=== PATIENT | female | born 1965 | race Caucasian/White ===

== ENCOUNTER 2020-02-21 06:24 | Inpatient (IN) ==
[2020-02-21] MEDS ORDERED: Heparin 1,000 UNITS/500 mL 500 ML ONE (06:46)
[2020-02-21] MEDS ORDERED: *HR* Propofol 200 MG/20 ML VIAL IVP ONE (06:50)
[2020-02-21] MEDS ORDERED: *HR* Midazolam HCl 2 MG/2 ML VIAL ONE (06:50)
[2020-02-21] MEDS ORDERED: *HR* Rocuronium Bromide 50 MG/5 ML VIAL ONE ×3 (06:52→10:19)
[2020-02-21] MEDS ORDERED: *HR* Succinylcholine 200 MG/10 ML VIAL IVP ONE (06:52)
[2020-02-21] MEDS ORDERED: Lidocaine HCL 4 ML Topical Solution (Laryng-O-Jet Kit Sterile Pak) TP ONE (06:52)
[2020-02-21] MEDS ORDERED: Lidocaine -MPF 2% 2 ML VIAL ONE ×2 (06:52→07:05)
[2020-02-21] MEDS ORDERED: EPHEDrine 50 MG/ML VIAL ONE (06:54)
[2020-02-21] MEDS ORDERED: *HR* Remifentanil 2 MG VIAL IVP ONE ×2 (06:55→10:15)
[2020-02-21] MEDS ORDERED: *HR* Phenylephrine 10 MG/ML VIAL ONE (07:04)
[2020-02-21] MEDS ORDERED: Heparin 1,000 UNITS/500 mL 1,000 ML ONE (07:08)
[2020-02-21] MEDS ORDERED: Vancomycin 1,500 MG/265 ML IV.SOLN IVPB ONE ×3 (07:17→20:00)
[2020-02-21] MEDS ORDERED: CeFAZolin Syr 2,000MG/20 ML 2,000 MG/20 ML SYRINGE IVPB ONE (07:17)
[2020-02-21] MEDS ORDERED: Ringers Solution, Lactated 1,000 ML IVC SCH ×2 (07:30→12:15)
[2020-02-21] MEDS ORDERED: Vancomycin 1,000 MG, Sodium Chloride IRRigation 1,000 ML IR ONE (07:45)
[2020-02-21] MEDS ORDERED: Ondansetron 4 MG/2 ML VIAL ONE (08:45)
[2020-02-21] MEDS ORDERED: Dexamethasone 4 MG/ML VIAL ONE (08:45)
[2020-02-21 10:36] LABS: ABG Base Excess -2 mEq/L (-2 to 3); ABG Chloride 108 mEq/L (98-107); ABG Glucose 95 mg/dL (60-95); ABG HCO3 23 mEq/L (21-27); ABG Ionized Calcium 1.15 mmol/L (1.15-1.35); ABG Oxygen Saturation 100 % (95-98); ABG PCO2 37 mmHg (35-45); ABG PO2 251 mmHg (85-104); ABG TCO2 24 mEq/L (20-26)
[2020-02-21] MEDS ORDERED: Vancomycin 1,000 MG VIAL ONE (10:59)
[2020-02-21] MEDS ORDERED: *HR* FentaNYL (PF) 100 MCG/2 ML VIAL ONE (11:50)
[2020-02-21] MEDS ORDERED: Acetaminophen 325 MG TABLET PO PRN ×2 (11:57→13:15)
[2020-02-21] MEDS ORDERED: *HR* HYDROcodone/Acet 5/325 mg TABLET PO PRN (11:57)
[2020-02-21] MEDS ORDERED: *HR* OxyCODONE Immed Rel 5 MG TABLET PO PRN ×2 (11:57→13:15)
[2020-02-21] MEDS ORDERED: *HR* Labetalol 20 MG/4 ML SYRINGE IVP PRN ×3 (11:57→12:09)
[2020-02-21] MEDS ORDERED: Ondansetron 4 MG/2 ML VIAL IVP PRN ×3 (11:57→13:15)
[2020-02-21] MEDS ORDERED: Naloxone 0.4 MG/ML INJ IVP PRN ×2 (11:57→13:15)
[2020-02-21] MEDS ORDERED: 0.9 % Sodium Chloride 1,000 ML IVC SCH (12:00)
[2020-02-21] MEDS ORDERED: *HR* Metoprolol 5 MG/5 ML VIAL IVP SCH (12:00)
[2020-02-21] MEDS ORDERED: *HR* HYDROmorphone PF 0.5 MG/0.5 ML SYRINGE IVP PRN (12:07)
[2020-02-21] MEDS ORDERED: Acetaminophen IV 1,000 MG/100 ML INFUS..BTL IVPB PRN (12:08)
[2020-02-21] MEDS: *HR* HYDROmorphone PF 0.5 MG/0.5 ML SYRINGE IVP PRN ×2 (12:30→12:35)
[2020-02-21] MEDS: 0.9 % Sodium Chloride 1,000 ML IVC SCH (14:59)
[2020-02-21 15:20] LABS: ABG Base Excess -5 mEq/L (-2 to 3); ABG Chloride 111 mEq/L (98-107); ABG Glucose 105 mg/dL (60-95); ABG HCO3 20 mEq/L (21-27); ABG Ionized Calcium 1.09 mmol/L (1.15-1.35); ABG Oxygen Saturation 100 % (95-98); ABG PCO2 38 mmHg (35-45); ABG PH 7.34 pH Units (7.32-7.45); ABG PO2 227 mmHg (85-104); ABG TCO2 22 mEq/L (20-26)
[2020-02-21] MEDS ORDERED: CeFAZolin 2 GM/120 ML BAG IVPB SCH (16:00)
[2020-02-21] MEDS: CeFAZolin 2 GM/120 ML BAG IVPB SCH ×2 (17:40→23:55)
[2020-02-21] MEDS: *HR* Metoprolol 5 MG/5 ML VIAL IVP SCH ×2 (17:40→23:55)
[2020-02-21] MEDS: hydrOXYzine pamoate 25 MG CAPSULE PO SCH (21:31)
[2020-02-21] MEDS: traZODone 50 MG TABLET PO SCH (21:31)
[2020-02-22 01:59] LABS: Basophils % 0.2 %; Hematocrit 45.8 % (35.3-44.9); Hemoglobin 14.7 g/dL (11.5-15.4); Immature Granulocytes % 0.5 % (0-4); Lymphocytes # 2.4 K/mcL (0.6-4.6); Lymphocytes % 13.8 %; Mean Corpuscular HGB Conc 32.1 g/dL (31.6-35.5); Mean Corpuscular Hemoglobin 30.7 pg (28.0-33.3); Mean Corpuscular Volume 95.6 fL (83.0-100.0); Mean Platelet Volume 11.6 fL (9.4-12.4); Monocytes # 1.2 K/mcL (0.0-1.3); Monocytes % 7.1 %; Neutrophils # 13.6 K/mcL (1.6-8.9); Platelet Count 175 K/mcL (140-400); Red Blood Count 4.79 M/mcL (3.82-4.97); Red Cell Distribution Width 13.2 % (11.5-14.5); Segmented Neutrophils % 78.4 %
[2020-02-22 02:00] LABS: White Blood Count 17.4 K/mcL (4.3-11.1)
[2020-02-22 02:17] LABS: Calcium 7.9 mg/dL (8.6-10.3); Potassium 4.8 mEq/L (3.5-5.1)
[2020-02-22] MEDS: 0.9 % Sodium Chloride 1,000 ML IVC SCH ×2 (03:04→18:07)
[2020-02-22] MEDS: *HR* Labetalol 20 MG/4 ML SYRINGE IVP PRN ×2 (03:55→06:16)
[2020-02-22] MEDS: *HR* Heparin 5,000 UNIT/ML VIAL SQ SCH ×2 (05:08→18:05)
[2020-02-22] MEDS: *HR* Metoprolol 5 MG/5 ML VIAL IVP SCH ×3 (05:08→18:07)
[2020-02-22] MEDS ORDERED: *HR* Heparin 5,000 UNIT/ML VIAL SQ SCH (06:00)
[2020-02-22] MEDS: Tiotropium 18 MCG inhalation IH SCH (07:17)
[2020-02-22] MEDS: hydrOXYzine pamoate 25 MG CAPSULE PO SCH ×2 (09:00→19:38)
[2020-02-22] MEDS: Lisinopril-HCTZ 20-12.5mg TABLET PO SCH (09:00)
[2020-02-22] MEDS: BUPRENORPHINE HCL SL SCH (09:01)
[2020-02-22] MEDS: clonazePAM 0.5 MG TABLET PO SCH (09:01)
[2020-02-22] MEDS: *HR* HYDROcodone/Acet 5/325 mg TABLET PO PRN ×2 (09:01→14:47)
[2020-02-22] MEDS: NALOXONE HCL SL SCH (09:01)
[2020-02-22] MEDS: Aspirin Enteric Coated 81 MG Tablet PO SCH (09:02)
[2020-02-22] MEDS: amLODIPine 5 MG TABLET PO SCH (09:02)
[2020-02-22] MEDS ORDERED: *HR* HYDROcodone/Acet 5/325 mg TABLET PO PRN (17:26)
[2020-02-22] MEDS: *HR* OxyCODONE Immed Rel 5 MG TABLET PO PRN (18:05)
[2020-02-22] MEDS: traZODone 50 MG TABLET PO SCH (19:38)
[2020-02-23] MEDS: *HR* Metoprolol 5 MG/5 ML VIAL IVP SCH ×4 (00:11→17:37)
[2020-02-23 04:50] LABS: Basophils % 0.5 %; Red Cell Distribution Width 13.5 % (11.5-14.5)
[2020-02-23 04:52] LABS: Basophils # 0.1 K/mcL (0.0-0.2); Eosinophils # 0.2 K/mcL (0.0-0.6); Eosinophils % 1.6 %; Hemoglobin 12.3 g/dL (11.5-15.4); Immature Granulocytes % 0.3 % (0-4); Immature Platelets 7.2 % (1.1-6.1); Lymphocytes # 2.7 K/mcL (0.6-4.6); Mean Corpuscular HGB Conc 31.5 g/dL (31.6-35.5); Mean Corpuscular Hemoglobin 30.2 pg (28.0-33.3); Mean Corpuscular Volume 95.8 fL (83.0-100.0); Mean Platelet Volume 11.1 fL (9.4-12.4); Monocytes # 1.3 K/mcL (0.0-1.3); Neutrophils # 8.5 K/mcL (1.6-8.9); Platelet Count 128 K/mcL (140-400); Red Blood Count 4.07 M/mcL (3.82-4.97); Segmented Neutrophils % 66.6 %; White Blood Count 12.8 K/mcL (4.3-11.1)
[2020-02-23 05:34] LABS: BUN/Creatinine Ratio 16 (6-26); Blood Urea Nitrogen 15 mg/dL (6-20); Carbon Dioxide 18 mEq/L (23-29); Chloride 107 mEq/L (98-107); Glucose 100 mg/dL (70-105); Osmolality,Calculated 279 (280-300); Potassium 4.3 mEq/L (3.5-5.1); Sodium 134 mEq/L (136-145); eGFR For African Americans > 60 (> 60); eGFR For Non-African Americans > 60 (> 60)
[2020-02-23] MEDS: *HR* Heparin 5,000 UNIT/ML VIAL SQ SCH ×2 (05:36→17:37)
[2020-02-23] MEDS: *HR* OxyCODONE Immed Rel 5 MG TABLET PO PRN ×2 (05:51→16:19)
[2020-02-23] MEDS: Tiotropium 18 MCG inhalation IH SCH (08:13)
[2020-02-23] MEDS: 0.9 % Sodium Chloride 1,000 ML IVC SCH (08:39)
[2020-02-23] MEDS: Aspirin Enteric Coated 81 MG Tablet PO SCH (08:42)
[2020-02-23] MEDS: NALOXONE HCL SL SCH (08:43)
[2020-02-23] MEDS: BUPRENORPHINE HCL SL SCH (08:43)
[2020-02-23] MEDS: clonazePAM 0.5 MG TABLET PO SCH (14:26)
[2020-02-23] MEDS: amLODIPine 5 MG TABLET PO SCH (14:27)
[2020-02-23] MEDS: hydrOXYzine pamoate 25 MG CAPSULE PO SCH ×2 (14:27→21:30)
[2020-02-23] MEDS: Lisinopril-HCTZ 20-12.5mg TABLET PO SCH (14:27)
[2020-02-23] MEDS: traZODone 50 MG TABLET PO SCH (21:30)
[2020-02-24] MEDS: *HR* Metoprolol 5 MG/5 ML VIAL IVP SCH ×4 (00:31→18:13)
[2020-02-24 04:49] LABS: Eosinophils % 3.6 %; Mean Corpuscular HGB Conc 31.3 g/dL (31.6-35.5); Mean Platelet Volume 11.5 fL (9.4-12.4); Platelet Count 114 K/mcL (140-400)
[2020-02-24 04:51] LABS: Basophils # 0.1 K/mcL (0.0-0.2); Basophils % 0.6 %; Eosinophils # 0.3 K/mcL (0.0-0.6); Hematocrit 35.1 % (35.3-44.9); Immature Granulocytes % 0.3 % (0-4); Immature Platelets 10.6 % (1.1-6.1); Lymphocytes # 2.7 K/mcL (0.6-4.6); Lymphocytes % 28.3 %; Mean Corpuscular Hemoglobin 30.7 pg (28.0-33.3); Monocytes % 10.8 %; Neutrophils # 5.3 K/mcL (1.6-8.9); Red Blood Count 3.58 M/mcL (3.82-4.97); Red Cell Distribution Width 13.3 % (11.5-14.5); Segmented Neutrophils % 56.4 %; White Blood Count 9.4 K/mcL (4.3-11.1)
[2020-02-24 05:05] LABS: BUN/Creatinine Ratio 18 (6-26); Blood Urea Nitrogen 18 mg/dL (6-20); Calcium 8.3 mg/dL (8.6-10.3); Carbon Dioxide 20 mEq/L (23-29); Chloride 108 mEq/L (98-107); Glucose 77 mg/dL (70-105); Osmolality,Calculated 281 (280-300); Sodium 135 mEq/L (136-145); eGFR For African Americans > 60 (> 60); eGFR For Non-African Americans 57 (> 60)
[2020-02-24] MEDS: *HR* Heparin 5,000 UNIT/ML VIAL SQ SCH ×2 (05:19→18:16)
[2020-02-24] MEDS: NALOXONE HCL SL SCH (07:35)
[2020-02-24] MEDS: BUPRENORPHINE HCL SL SCH (07:35)
[2020-02-24] MEDS: Tiotropium 18 MCG inhalation IH SCH (07:56)
[2020-02-24] MEDS: Aspirin Enteric Coated 81 MG Tablet PO SCH (09:48)
[2020-02-24] MEDS: Lisinopril-HCTZ 20-12.5mg TABLET PO SCH (09:49)
[2020-02-24] MEDS: clonazePAM 0.5 MG TABLET PO SCH ×2 (09:49→12:17)
[2020-02-24] MEDS: hydrOXYzine pamoate 25 MG CAPSULE PO SCH ×2 (09:49→20:50)
[2020-02-24] MEDS: amLODIPine 5 MG TABLET PO SCH (12:17)
[2020-02-25] MEDS: traZODone 50 MG TABLET PO SCH (01:06)
[2020-02-25] MEDS: *HR* Metoprolol 5 MG/5 ML VIAL IVP SCH ×2 (01:07→05:16)
[2020-02-25] MEDS: *HR* Heparin 5,000 UNIT/ML VIAL SQ SCH (05:16)
[2020-02-25] MEDS: clonazePAM 0.5 MG TABLET PO SCH (09:17)
[2020-02-25] MEDS: Aspirin Enteric Coated 81 MG Tablet PO SCH (09:17)
[2020-02-25] MEDS: BUPRENORPHINE HCL SL SCH (09:18)
[2020-02-25] MEDS: NALOXONE HCL SL SCH (09:18)
[2020-02-25] MEDS: Lisinopril-HCTZ 20-12.5mg TABLET PO SCH (09:18)
[2020-02-25] MEDS: amLODIPine 5 MG TABLET PO SCH (09:18)
[2020-02-25] MEDS: hydrOXYzine pamoate 25 MG CAPSULE PO SCH (09:18)
[2020-02-25] MEDS: Tiotropium 18 MCG inhalation IH SCH (10:58)
[2020-02-25 11:31] VITALS: BP 121/70
== END 2020-02-25 15:27 | disposition home health service (06) | DRG 169 ==
LOC: SAMDAY 06:24 → 2NNU 14:55
PROVIDERS: ADMIT Surgery; ATTEND Surgery